=== PATIENT | female | born 1985 | race African-American/Black ===

== ENCOUNTER 2022-05-19 12:37 | Emergency (ER) | payer MEDICAID, SELFPAY ==
--- NOTE | 2022-05-19 12:40 | ED.ABDPAIN ---
HPI - Abdominal Pain General Chief Complaint: Abdominal Pain Stated Complaint: curretnly , ulcer, stomach burning Time Seen by Provider: 05/19/22 13:28 Mode of arrival: ambulatory Limitations: no limitations History of Present Illness HPI narrative: 37-year-old female who is 17 weeks with twins presents with concern for epigastric pain with nausea for 3 days. She reports the pain is exacerbated by eating. She reports it is a burning-type pain. She reports a history of gastritis and stomach ulcers. She denies any vomiting, diarrhea, dark colored stools. She denies chest pain or shortness of breath. She reports she has been taking Pepcid without relief. MD elicited complaint: abdominal pain Related Data Home Medications Medication Instructions Recorded Confirmed labetalol 200 mg tablet 200 mg PO TID 05/19/22 05/19/22 nifedipine 60 mg tablet,extended 30 mg PO BID 05/19/22 05/19/22 release 24 hr Allergies Allergy/AdvReac Type Severity Reaction Status Date / Time No Known Allergies Allergy Verified 05/19/22 12:49 Review of Systems Review of Systems: CONSTITUTIONAL: Denies malaise, chills, sweats, or fever. CARDIOVASCULAR: Denies chest pain, palpitations, or edema. RESPIRATORY: Denies cough or dyspnea. GASTROINTESTINAL: Reports epigastric abdominal pain, nausea. Denies vomiting, diarrhea, bloody, or mucous stools. MUSCULOSKELETAL: Denies myalgia. NEUROLOGIC: Denies headache. All systems reviewed & are unremarkable except as noted in HPI and below PMFSH Comments At time of signature, agree with nursing past medical, surgical, social and family history. There is no relevant family history pertinent to the presenting complaint Exam Narrative: GENERAL: Well-appearing, well-nourished, and in no acute distress. HEAD: Normocephalic. EYES: PERRLA, conjunctivae clear. NECK: Supple. No lymphadenopathy CHEST: Clear to auscultation. No respiratory distress. HEART: Regular rate and rhythm. ABDOMEN: Soft, nontender upon palpation, normal active bowel sounds, no palpable or pulsatile masses, no guarding. SKIN: Warm, dry, no rash. NEURO: Alert and oriented x3. PSYCH: Normal mood and affect Course Course Emergency Course: Patient is aware of diagnosis, understands and agrees to treatment plan. Anticipatory guidance given. Patient agrees to follow-up as directed and is aware of reasons to seek care at the emergency department. Portions of this record may have been created with voice recognition software Level of Care: Express Care Visit Reevaluation(s) Reevaluation #1: Patient reports pain is resolved after Zofran and GI cocktail Date: 05/19/22 Time: 13:45 Vital Signs Vital signs: Vital Signs Temperature 98 F 05/19/22 12:54 Pulse Rate 92 05/19/22 12:54 Respiratory Rate 16 05/19/22 12:54 Blood Pressure 148/98 H 05/19/22 12:54 Pulse Oximetry 100 05/19/22 12:54 Temperature 98 F 05/19/22 12:54 Pulse Rate 92 05/19/22 12:54 Respiratory Rate 16 05/19/22 12:54 Blood Pressure 148/98 H 05/19/22 12:54 Pulse Oximetry 100 05/19/22 12:54 Reviewed. MDM - Abdominal Pain MDM Narrative Medical decision making narrative: Exam findings show no acute concerns or changes; patient is non-toxic appearing and is in no distress. Patient is appropriate for outpatient treatment and follow-up. Differential Diagnosis Differential diagnosis: Likely abdominal pain, acute appendicitis, constipation, diverticulitis, gastroenteritis and small bowel obstruction Critical Care Time Critical Care Time Critical Care Time: No Discharge Plan Discharge Clinical Impression: Gastritis Patient Disposition: Home, Self-Care Condition: Stable Instructions: Diet for Stomach Ulcers and Gastritis (ED) Additional Instructions: Take medications as directed. Follow bland diet as listed in your discharge instructions. Please make an appointment with your curator of manuscripts for re-evaluat
[2022-05-19 12:54] VITALS: BP 148/98; PULSE 92; RESP 16; TEMP 36.6; O2SAT 100
[2022-05-19] MEDS: LIDOCAINE HCL 2% VISC SOLN 15 ML UDC PO (13:37)
[2022-05-19] MEDS: ONDANSETRON HCL ODT 4 MG TABLET PO (13:37)
[2022-05-19] MEDS: MAG HYDROX/AL HYDROX/SIMETH 30 ML UDC PO (13:37)
== END 2022-05-19 13:53 | disposition home or self-care (01) ==
PROVIDERS: Emergency Provider Nurse Practitioner
DX: O99.612 Diseases of the digestive system complicating pregnancy, second trimester (principal); K29.70 Gastritis, unspecified, without bleeding; Z3A.17 17 weeks gestation of pregnancy
CPT/HCPCS: 99213; A9270; G0463

== ENCOUNTER 2024-02-06 10:57 | Emergency (ER) | payer MEDICAID, SELFPAY ==
[2024-02-06 11:07] VITALS: BP 128/89; PULSE 81; RESP 16; TEMP 36.9; O2SAT 100
--- NOTE | 2024-02-06 11:33 | ED.EYEPROB ---
HPI - Eye Problem General Chief complaint: Eye Problems Stated complaint: [place] eye Time Seen by Provider: 02/06/24 11:21 Source: patient, RN notes reviewed and old records reviewed Mode of arrival: ambulatory Limitations: no limitations History of Present Illness HPI Narrative: 38 year old female who presents to [facility] care with complaints of left eye irritation which has increased with some mucous drainage to her left eye. Patient reports that she went to another urgent care on Thursday due to left eye irritation and was treated for allergies to her left eye with Ketoprofen eye drops which did help itching but irritation is worse. Patient reports no eye trauma or any visual changes MD chief complaint: eye redness and other (itching, irritation and some mucous drainage) Onset (ago): day(s) (5 days of allergy type of symptoms to her left eye) Location: left eye Severity: moderate Treatments Prior to Arrival: other (ketoprofen eye drops) Related Data Allergies Allergy/AdvReac Type Severity Reaction Status Date / Time No Known Allergies Allergy Verified 02/06/24 11:30 Review of Systems Review of Systems: CONSTITUTIONAL: Denies fever, chills, or sweats. EYES: Denies visual changes. Reports redness,, irritation, discharge from left eye with no sharp pain to her left eye. ENT: Denies rhinorrhea, congestion, sore throat, or otalgia. CARDIOVASCULAR: Denies chest pain, palpitations, or edema. RESPIRATORY: Denies cough or dyspnea. SKIN: Denies rash or itching. NEUROLOGIC: Denies headache All systems reviewed & are unremarkable except as noted in HPI and below PMFSH Past Medical History Medical History (Updated 02/07/24 @ 11:47 by Paige Griffin NP) Hypertension Social History Social History (Updated 02/07/24 @ 11:40 by Paige Griffin NP) Smoking status: Never smoker Alcohol intake: current Alcohol use details: social Substance use type: does not use Living arrangements: with family Gender identity (if verbalized by the patient): Female Comments At time of signature, agree with nursing past medical, surgical, social and family history. There is no relevant family history pertinent to the presenting complaint Exam Narrative: GENERAL: Well-appearing, well-nourished, and in no acute distress. HEAD: Normocephalic, atraumatic. EYES: PERRLA and EOMI. Upper and lower eyelids unremarkable. No periorbital cellulitis noted. Sclera and conjunctivae injected left eye with mucous drainage, denies any sharp pain to eye or visual changes ENT: Nares clear, no rhinorrhea or epistaxis. Mucous membranes moist.TM's normal with good light reflex, throat pink with no lesions NECK: Supple.no lymphadenopathy CHEST: Clear to auscultation. No respiratory distress. no cough noted SAO2 100% on room air HEART: Regular rate and rhythm. No murmur heard. Normal peripheral pulses. SKIN: Warm, dry, no rash. NEURO: No focal deficits. Alert and oriented x3. Course Course Emergency Course: Patient is aware of diagnosis, understands and agrees to treatment plan. Anticipatory guidance given. Patient agrees to follow-up as directed and is aware of reasons to seek care at the emergency department. Portions of this record may have been created with voice recognition software Level of Care: Express Care Visit Vital Signs Vital signs: Vital Signs Temperature 36.9 C 02/06/24 11:07 Pulse Rate 81 02/06/24 11:07 Respiratory Rate 16 02/06/24 11:07 Blood Pressure 128/89 02/06/24 11:07 Pulse Oximetry 100 02/06/24 11:07 Temperature 36.9 C 02/06/24 11:07 Pulse Rate 81 02/06/24 11:07 Respiratory Rate 16 02/06/24 11:07 Blood Pressure 128/89 02/06/24 11:07 Pulse Oximetry 100 02/06/24 11:07 Reviewed MDM - Eye Problem MDM Narrative Medical decision making narrative: Consideration of the following conditions may be warranted for the presenting problem, they are not final diagnoses: Bacterial conjunctivitis, allergic conjunctivitis, viral conjunctivitis, foreign body, blepharitis, chalazion, hordeolum, corneal abrasion.? Exam findings show no acute concerns or changes; patient is non-toxic appearing and is in no distress.? Patient is appropriate for outpatient treatment and follow-up. Differential Diagnosis Differential diagnosis: Likely conjunctivitis, subconjunctival hemorrhage and other (left eye irritation with mucous drainage) Medical Records Attestation: I reviewed the patient's medical records. Critical Care Time Critical Care Time Critical Care Time: No Discharge Plan Discharge Clinical Impression: Conjunctivitis Patient Disposition: Home, Self-Care Condition: Stable Instructions: Antibiotic Form, Conjunctivitis (ED) Additional Instructions: Cold compresses to the eyes for comfort May need warm compresses to remove debris in the morning When cleaning the eyes used a washcloth in one direction then change washcloths or use a cotton ball in one direction and then his cotton balls Eyedrops as directed--may be more soothing if left in the refrigerator Do not share medicine--do not touch the eye with the medicine Tylenol or ibuprofen for pain Avoid screen time--television, computer, tablet or phone. Also no reading or driving Follow-up with PCP or water reuse program manager as directed if no improvement in symptoms in 48 hours or sooner if increased concerns If your symptoms persist, change or worsen significantly before you can contact your personal physician then please, without delay, go to the emergency department for further evaluation. Follow-up with PCP in 7-10 days or sooner if needed Follow up with PCP soon in regards to your blood pressure which is elevated above threshold for referral. Blood pressure above 120/80 may indicate pre-hypertension. 128/89 Prescriptions: New ofloxacin 0.3 % drops See Rx Instructions .ROUTE .COMPLEX Qty: 10 0RF Rx Instructions: put 1-2 drps into affected eye(s) every 2-4 h x 2 days, then 1-2 drps 4 times/day days 3-7 Follow-up/Referrals: PHYSICIAN,SATELLITE DISH REPAIRER [Primary Care Provider] - Time of Disposition: 11:41 Quality [place] Coma Scale Eyes: Open Verbal: Oriented and Alert Motor: Follows Commands Lorena Coma Total Score: 15
== END 2024-02-06 11:44 | disposition home or self-care (01) ==
PROVIDERS: Emergency Provider Registered Nurse
DX: H10.9 Unspecified conjunctivitis (principal); I10 Essential (primary) hypertension
CPT/HCPCS: 99213; G0463

== ENCOUNTER 2024-04-26 09:57 | Emergency (ER) | payer OTHER, SELFPAY ==
--- NOTE | 2024-04-26 10:08 | ED_ITS ---
HPI - Extremity Problem General Chief complaint: Extremity Problem,Nontraumatic Stated complaint: Infected Big Toe Time Seen by Provider: 04/26/24 10:40 Source: patient and RN notes reviewed Mode of arrival: ambulatory Limitations: no limitations History of Present Illness HPI Narrative: 38 year old female presents with concern for pain to the 1st digit of the left foot. She reports this started 9 days ago which was about a week after she had a pedicure. She reports pain when the distal nail is pressed on. She denies any drainage. She reports of 1st it felt like a deep itching and now it is painful. MD Complaint: extremity pain Related Data Home Medications ?Medication ?Instructions ?Recorded ?Confirmed ?Last Taken ?Type No Home Medications 04/26/24 04/26/24 Unknown History Allergies Allergy/AdvReac Type Severity Reaction Status Date / Time No Known Allergies Allergy Verified 04/26/24 10:24 Review of Systems Review of Systems: CONSTITUTIONAL: Denies malaise, chills, sweats, or fever. EYES: Denies redness, or discharge. ENT: Denies rhinorrhea, congestion, swollen lips, swollen tongue CARDIOVASCULAR: Denies chest pain, palpitations, or edema. RESPIRATORY: Denies cough or dyspnea. GASTROINTESTINAL: Denies abdominal pain, nausea, vomiting SKIN: Reports pain around the toenail of the 1st digit of the left foot MUSCULOSKELETAL: Denies joint pain or myalgia. NEUROLOGIC: Denies headache. All systems reviewed & are unremarkable except as noted in HPI and below PMFSH Past Medical History Medical History (Updated 04/26/24 @ 10:53 by Latanya Mccoy NP) Hypertension Social History Social History (Updated 02/07/24 @ 11:40 by Paige Griffin NP) Smoking status: Never smoker Alcohol intake: current Alcohol use details: social Substance use type: does not use Living arrangements: with family Gender identity (if verbalized by the patient): Female Comments At time of signature, agree with nursing past medical, surgical, social and family history. There is no relevant family history pertinent to the presenting complaint Exam Narrative: GENERAL: Well-appearing, well-nourished, and in no acute distress. HEAD: Normocephalic, atraumatic. EYES: PERRLA, conjunctivae clear, and EOMI. ENT: Mucous membranes moist. Oropharynx without edema, erythema or lesions. NECK: Supple. No lymphadenopathy CHEST: Clear to auscultation. No respiratory distress. HEART: Regular rate and rhythm. SKIN: Warm, dry. Tenderness to the 1st toe the left foot when the distal nail bed is pressed on, swelling noted under the nail bed. No fluctuation noted NEURO: Alert and oriented x3. PSYCH: Normal mood and affect Course Course Emergency Course: Patient is aware of diagnosis, understands and agrees to treatment plan. Anticipatory guidance given. Patient agrees to follow-up as directed and is aware of reasons to seek care at the emergency department. Portions of this record may have been created with voice recognition software Level of Care: [facility] Visit Vital Signs Vital signs: Vital Signs Temperature 98.2 F 04/26/24 10:14 Pulse Rate 97 04/26/24 10:14 Respiratory Rate 18 04/26/24 10:14 Blood Pressure 133/84 04/26/24 10:14 Pulse Oximetry 99 04/26/24 10:14 Temperature 98.2 F 04/26/24 10:14 Pulse Rate 97 04/26/24 10:14 Respiratory Rate 18 04/26/24 10:14 Blood Pressure 133/84 04/26/24 10:14 Pulse Oximetry 99 04/26/24 10:14 Reviewed. MDM - Extremity (Nontraumatic) MDM Narrative Medical decision making narrative: I evaluated this patient in the [facility]. History is obtained from patient who is an independent historian and physical exam was performed.? Available medical records were reviewed. ? Exam findings show no acute concerns or changes; patient is non-toxic appearing and is in no distress. ? Differential diagnosis and treatment plan were discussed with the patient. Patient agrees with discussion and after shared medical decision making agrees with plan of care. All questions were answered to the patient's satisfaction. Patient is appropriate for outpatient treatment and follow-up. Critical Care Time Critical Care Time Critical Care Time: No Discharge Plan Discharge Clinical Impression: Infection of toenail Patient Disposition: Home, Self-Care Condition: Stable Instructions: Antibiotic Form Additional Instructions: Soak your nail: Soak your nail in a mixture of equal parts vinegar and water 3 or 4 times each day. This will help decrease inflammation. Apply a warm compress: Soak a washcloth in warm water and place it on your nail. This will help decrease inflammation. Elevate: Raise your nail above the level of your heart as often as you can. This will help decrease swelling and pain. Prop your nail on pillows or blankets to keep it elevated comfortably. Please follow-up with your primary care doctor in the next 1-2 days. If you cannot follow-up with your primary care doctor please go to the ED for any urgent issues. 2) If you have any worsening of symptoms or any other concerns please go to the ED immediately. 3) Please take medications as prescribed and continue taking your home medications as usual. Patient Language: Welsh Prescriptions: New sulfamethoxazole-trimethoprim 800-160 mg tablet 1 tablet PO Q12H 7 Days Qty: 14 0RF No Action No Home Medications Follow-up/Referrals: PHYSICIAN,GLUE MAKER [Primary Care Provider] - Time of Disposition: 10:54
[2024-04-26 10:14] VITALS: BP 133/84; PULSE 97; RESP 18; TEMP 36.8; O2SAT 99
== END 2024-04-26 10:59 | disposition home or self-care (01) ==
PROVIDERS: Emergency Provider Nurse Practitioner
DX: L03.032 Cellulitis of left toe (principal); I10 Essential (primary) hypertension
CPT/HCPCS: 99213; G0463

== ENCOUNTER 2024-09-21 14:36 | Emergency (ER) | payer MEDICAID, SELFPAY ==
[2024-09-21 15:01] VITALS: BP 132/87; PULSE 96; RESP 16; TEMP 36.6; O2SAT 100
--- NOTE | 2024-09-21 16:05 | ED.EYEPROB ---
HPI - Eye Problem General Chief complaint: Eye Problems Stated complaint: bilateral eye irritation/ nasal pressure Time Seen by Provider: 09/21/24 15:40 Source: patient and RN notes reviewed Mode of arrival: ambulatory Limitations: no limitations History of Present Illness HPI Narrative: 39-year-old female presents Express Care complaining of bilateral eye redness, crusty eyes, in eyelid swelling, and congestion for approximately 1 week. Patient tried left over antibiotic eye drops for the last 3 or 4 days for possible conjunctivitis without any relief. Patient recently called her wood cutter was told to buy [id number] Pataday for allergies and started yesterday without relief. Patient is also use antihistamines and nasal steroids. Patient denies any fever, cough, runny nose, sore throat, or any other upper respiratory symptoms. Denies any eye pain, eye discharge, vision changes, blurry vision, headaches, or any other symptoms. Patient denies any significant past medical history. Related Data Home Medications ?Medication ?Instructions ?Recorded ?Confirmed ?Last Taken ?Type semaglutide (weight loss) 2.4 mg subcut 09/21/24 Unknown History mg/0.75 mL subcutaneous pen injector (Wegovy) Allergies Allergy/AdvReac Type Severity Reaction Status Date / Time No Known Allergies Allergy Verified 09/21/24 15:11 Review of Systems Review of Systems: CONSTITUTIONAL: Denies fever, chills, or sweats. EYES: Denies visual changes, eye pain, a blurry vision, or discharge. Positive for redness. ENT: Denies rhinorrhea, sore throat, or otalgia. Positive for congestion. CARDIOVASCULAR: Denies chest pain, palpitations, or edema. RESPIRATORY: Denies cough or dyspnea. GASTROINTESTINAL: Denies abdominal pain, nausea, vomiting, or diarrhea. GENITOURINARY: Denies dysuria or hematuria. SKIN: Denies rash or itching. MUSCULOSKELETAL: Denies back pain, joint pain, or myalgia. NEUROLOGIC: Denies headache, numbness, or weakness. PSYCHIATRIC: Denies anxiety or depression. All other systems reviewed are negative, except as documented in HPI. [facility] Past Medical History Medical History Hypertension Social History Social History Smoking status: Never smoker Alcohol intake: current Alcohol use details: social Substance use type: does not use Living arrangements: with family Gender identity (if verbalized by the patient): Female Comments At the time of my signature, I reviewed and agree with the nursing past medical, surgical, social, and family history. There is no relevant family history pertinent to the patient complaint. Exam Narrative: GENERAL: This is a well-nourished, well-developed adult, in no apparent distress. They are non ill-appearing, nontoxic appearing. HEAD: normocephalic, atraumatic. EYES: Sclera clear/white. Conjunctiva injected, no exudate. Vision is grossly intact. Extraocular movements intact. Pupils PERRLA. Upper and lower eyelids are edematous without redness or tenderness. EARS: External ears normal, auditory canals clear and without drainage, TMs normal without perforation. Hearing grossly intact. NOSE: External nose normal with no obvious nasal discharge, nasal turbinates boggy with clear discharge, no rhinorrhea. THROAT: Mucous membranes moist, posterior pharynx clear, without erythema or swelling. Uvula midline. Postnasal drip present. NECK: Neck supple, non-tender without lymphadenopathy, masses or thyromegaly. CARDIOVASCULAR: Regular rate and rhythm without murmurs, gallops, or rubs. RESPIRATORY: Clear to auscultation. Breath sounds equal bilaterally. No wheezes, rales, or rhonchi. SKIN: warm, Dry, intact with no suspicious lesions or rash, good texture and turgor. NEURO: awake, alert, and oriented to person, place and time. There were no obvious focal neurologic abnormalities. EXTREMITIES: No joint tenderness, effusion, or edema noted. BACK: Nontender without deformity. No CVA tenderness. Course Course Emergency Course: Portions of this record may have been created with voice recognition software Level of Care: Express Care Visit Vital Signs Vital signs: Vital Signs Temperature 97.9 F 09/21/24 15:01 Pulse Rate 96 09/21/24 15:01 Respiratory Rate 16 09/21/24 15:01 Blood Pressure 132/87 09/21/24 15:01 Pulse Oximetry 100 09/21/24 15:01 Temperature 97.9 F 09/21/24 15:01 Pulse Rate 96 09/21/24 15:01 Respiratory Rate 16 09/21/24 15:01 Blood Pressure 132/87 09/21/24 15:01 Pulse Oximetry 100 09/21/24 15:01 Reviewed MDM - Eye Problem MDM Narrative Medical decision making narrative: Patient likely has allergic conjunctivitis given physical exam findings. Advised patient continue using antihistamine eyedrops [id number] allergy medications. Will prescribe azelastine spray as well. Discussed physical exam findings. Advised supportive measures and signs/symptoms to go to the ER. Pt is appropriate for outpt treatment and f/u. Differential Diagnosis Differential diagnosis: Likely conjunctivitis (Allergic or bacterial) and other (Allergic rhinitis, hayfever, upper respiratory infection) Critical Care Time Critical Care Time Critical Care Time: No Discharge Plan Discharge Clinical Impression: Allergic conjunctivitis Qualifiers: Laterality: bilateral Qualified Code(s): H10.13 - Acute atopic conjunctivitis, bilateral Patient Disposition: Home Condition: Stable Instructions: Allergies (ED) Additional Instructions: Continue to use Pataday 0.7% eyedrops. You may instill 1 drop into each eye daily. You may use Flonase or Nasacort as needed for congestion. Two sprays into each nostril daily. You may take Claritin or Zyrtec daily for allergies. You may use Benadryl as needed however Benadryl may make you drowsy. Use azelastine antihistamine spray as directed. You may use artificial tears to help hydrate your eyes if they become dry. Please wait approximately 5 minutes between each instillation of eyedrops to prevent washing the mouth. Follow-up PCP in 3-5 days. You may see endless track vehicle supervisor if symptoms persist. Please return ER if he develops any fevers, breathing problems, severe eye pain, vision changes, or any other concerns. Patient Language: Bengali Prescriptions: New azelastine 205.5 mcg (0.15 %) spray,non-aerosol 2 spray intranasal DAILY 14 Days Qty: 30 0RF Rx Instructions: administer into each nostril No Action Wegovy 2.4 mg/0.75 mL pen injector SUBCUT Follow-up/Referrals: Santiago,Paco [Other] Time of Disposition: 15:49
== END 2024-09-21 15:51 | disposition home or self-care (01) ==
DX: H10.13 Acute atopic conjunctivitis, bilateral (principal); I10 Essential (primary) hypertension
CPT/HCPCS: 99213; G0463